=== PATIENT | male | born 1995 | race African-American/Black ===

== ENCOUNTER 2025-07-08 01:35 | Emergency (ER) | payer MEDICAID ==
[~2025-07-08] VITALS: Ht 180.3 cm; Wt 71.0 kg
[2025-07-08 02:00] VITALS: O2SAT 99
[2025-07-08 02:01] VITALS: BP 131/85; PULSE 57; RESP 16; TEMP 36.6; O2SAT 99
== END 2025-07-08 04:08 | disposition home or self-care (01) ==
LOC: ER 01:35
DX: J02.9 Acute pharyngitis, unspecified (principal); F17.200 Nicotine dependence, unspecified, uncomplicated; J45.909 Unspecified asthma, uncomplicated
CPT/HCPCS: 99282